=== PATIENT | male | born 1960 | race Native Hawaiian/Other Pacific Islander ===

== ENCOUNTER 2023-07-09 16:32 | Emergency (ER) | payer OTHER, SELFPAY ==
[2023-07-09 16:45] VITALS: BP 183/100; PULSE 64; RESP 19; TEMP 36.8; O2SAT 98
--- NOTE | 2023-07-09 18:01 | PC.NURSE ---
pt ambulatory to intake desk requesting to leave to go eat and come back. pt made aware his spot on the waitlist will not be held, but can check back in if returning. pt states he does not want to wait any longer and ambulated out of ED doors without difficulty.
== END 2023-07-09 18:01 | disposition left against medical advice (07) ==
LOC: ANHED 18:25
PROVIDERS: PCP Family Medicine
DX: I10 Essential (primary) hypertension (principal)
CPT/HCPCS: 99199

== ENCOUNTER 2023-07-10 07:17 | Outpatient (CLI) | payer OTHER, SELFPAY ==
[2023-07-10 07:52] LABS: Hematocrit 42.1 % (42.0-52.0); Mean Corpuscular HGB Conc 33.3 g/dl (32-36); Mean Corpuscular Hemoglobin 31.7 pg (26-34); Mean Corpuscular Volume 95.5 fl (80-100); Mean Platelet Volume 9.7 fl (7.4-10.4); Platelet Count Result 275 k/mm3 (150-375); Red Blood Count 4.41 M/mm3 (4.6-6.20)
[2023-07-10 07:56] LABS: Alanine Aminotransferase 26 U/L (6-50); Alkaline Phosphatase 77 U/L (38-126); Anion Gap 8 mmol/L (8-16); Aspartate Amino Transferase 27 U/L (17-59); Bilirubin,Total 0.5 mg/dL (0.2-1.3); Blood Urea Nitrogen 19 mg/dL (9-20); Calcium 8.8 mg/dL (8.4-10.2); Carbon Dioxide 28 mmol/L (22-30); Chloride 105 mmol/L (98-107); Cholesterol 175 mg/dL (0-200); Estimated Glomerular Filt Rate > 60; Glucose 101 mg/dL (65-110); HDL Direct 59 mg/dL; Potassium 4.3 mmol/L (3.4-5.0); Sodium 141 mmol/L (137-145); Triglycerides 66 mg/dL (<150)
[2023-07-10 08:06] LABS: LDL Cholesterol Direct 86 mg/dL
[2023-07-10 08:47] LABS: Free T4 Free Thyroxine 1.21 ng/mL (0.78-2.19)
== END 2023-07-10 07:18 | disposition home or self-care (01) ==
LOC: ANHLAB 07:18
PROVIDERS: PCP Family Medicine; Visit Provider Physician Assistant
DX: Z12.5 Encounter for screening for malignant neoplasm of prostate (principal); Z13.220 Encounter for screening for lipoid disorders; Z13.1 Encounter for screening for diabetes mellitus; R53.83 Other fatigue
CPT/HCPCS: 36415; 80053; 80061; 84153; 84439; 84443; 85027; G0103